=== PATIENT | male | born 1940 | race Caucasian/White ===

== ENCOUNTER 2017-01-13 17:24 | Emergency (ER) | payer MEDICARE, MEDICAID ==
--- NOTE | 2017-01-13 18:13 | CT ---
CT OF THE BRAIN WITHOUT CONTRAST 01/13/17 Comparison is made with the prior study of 09/20/16. [place] holes are seen in the left frontal region fr om a prior procedure. There is no longer any subdural blood. No acute intracranial bleeding, mass, ed jennie, or sign of stroke was found. The ventricles are normal in size for age. There is no ventricular shift. The calvarium appears intact. The visible paranasal sinuses are clear. The mastoid air cells a nd sphenoid sinus is clear. IMPRESSION: No acute intracranial findings. POS: HOME
[2017-01-13 18:26] LABS: #Basophils 0.2 thou/uL (0.0-0.2); #Eosinphils 0.1 thou/uL (0.0-0.7); #Lymphocytes 3.1 thou/uL (1.20-3.40); #Monocytes 0.9 thou/uL (0.11-0.59); #Neutrophils 6.5 thou/uL (1.40-6.50); %Basophils 1.5 % (0.0-1.0); %Eosinophils 1.3 % (0.0-10.0); %Lymphocytes 28.9 % (21.0-51.0); %Monocytes 8.2 % (0.0-10.0); %Neutrophils 60.2 % (42.0-75.0); Hemoglobin 14.6 g/dL (14.0-18.0); Mean Corpuscular HGB CONC 32.3 g/dL (32.0-36.0); Mean Corpuscular Hemoglobin 31.2 pg (27.0-31.0); Mean Corpuscular Volume 96.3 fl (80.0-94.0); Mean Platelet Volume 8.6 fL (7.4-10.4); Platelet Count 204 thou/uL (130-400); RBC Distribution Width 14.3 % (11.5-14.5); White Blood Cell (WBC) Count 10.9 thou/uL (4.8-10.8)
[2017-01-13 18:38] LABS: ALT (SGPT) 19 U/L (8-55); AST (SGOT) 17 U/L (5-34); Albumin 4.2 g/dL (3.4-4.8); Alkaline Phosphatase 75 U/L (40-150); Anion Gap 19 mmol/L (10-20); BUN (Urea Nitrogen) 40 mg/dL (8.4-25.7); Bilirubin, Total 0.4 mg/dL (0.2-1.2); Calc. Creatinine Clearance 0 mL/min (70-130); Calcium 9.4 mg/dL (7.8-10.44); Carbon Dioxide 34 mmol/L (23-31); Chloride 92 mmol/L (98-107); Estimated GFR-MDRD 32; Globulin 4.4 g/dL (2.4-3.5); Glucose 145 mg/dL (83-110); Potassium 3.1 mmol/L (3.5-5.1); Protein, Total 8.6 g/dL (5.8-8.1); Sodium 142 mmol/L (136-145)
[2017-01-13 18:40] LABS: CKMB 1.7 ng/mL (0-6.6); Troponin I Less than 0.010 ng/mL (< 0.028)
[2017-01-13] MEDS ORDERED: Potassium Chloride 20 MEQ/100 ML PREMIX BAG ONE (18:48)
[2017-01-13] MEDS ORDERED: Potassium Chloride 20 MEQ TAB ONE (18:48)
== END 2017-01-13 20:05 | disposition short-term general hospital (02) ==
LOC: BURERS 17:24
DX: R55 Syncope and collapse (principal); I10 Essential (primary) hypertension
CPT/HCPCS: 36415; 70450; 80053; 82553; 83880; 84484; 85025; 93005; 96365; J3480